=== PATIENT | female | born 1995 | race Caucasian/White ===

== ENCOUNTER 2019-06-29 12:42 | Emergency (ER) | payer BC ==
[~2019-06-29] VITALS: Ht 165.1 cm; Wt 44.0 kg
[2019-06-29 14:20] VITALS: BP 104/52
== END 2019-06-29 15:18 | disposition home or self-care (01) ==
LOC: ED 15:02
DX: O20.0 Threatened abortion (principal)
CPT/HCPCS: 36415; 76801; 81001; 84702; 85025; 86901; 99284